=== PATIENT | female | born 1955 | race Caucasian/White ===

== ENCOUNTER 2017-01-28 06:58 | Day surgery (SDC) | payer OTHER ==
[~2017-01-28] VITALS: Ht 167.6 cm; Wt 113.4 kg
--- NOTE | ~2017-01-28 | OP ---
PATIENT NAME: SUKHDEV HYMAN MEDICAL RECORD: [id number] :53 LOCATION:[facility] ADMISSION DATE: SURGEON: ROGELIO RANDALL MD DATE OF OPERATION: 01/28/2017 PREOPERATIVE DIAGNOSIS: Nasopharyngeal mass. POSTOPERATIVE DIAGNOSIS: Nasopharyngeal mass. PROCEDURE: Excision of a nasopharyngeal mass. SURGEON: Rogelio Randall MD ANESTHESIA: General orotracheal. BLOOD LOSS: 2 cc. SPECIMENS: Mass from the nasopharynx, really the left nasopharyngeal surface of the palate. COMPLICATIONS: None. DISPOSITION: Recovery, stable. DESCRIPTION OF PROCEDURE: She was brought to the operating room and placed in supine position, sedated and intubated by anesthesia. The eyes were taped. The table was turned 90 degrees. A head drape was applied and she was positioned. Using a headlight, a Giana-Francisco mouth gag was carefully inserted and elevated on a towel on her chest. The palate was examined and palpated. It was normal. The left tonsillar pillar in the arch, there we could see the mass extending into the oropharynx just a little bit. Red rubber catheter was placed through the right side of the nose into the pharynx and grasped with a tonsil clamp to retract the soft palate and lift it up. The mass immediately became visible. It extended down to right about the inferior border of the palate, but then on exam, we could tell it did not extend to the lateral nasal wall, but it did extend with its attachment all the way up to the choana, but the base was fairly narrow about 1 cm wide. The nasopharyngeal mucosa of the palate was injected with a total of less than 1 cc of 1% with 1:100,000 epinephrine and then the mass was grasped with a pickup and using Metzenbaum scissors, the mucosa was divided around the entire lesion following it slowly posteriorly and removing a small cuff of normal mucosa around the lesion. Then, it was dissected basically full thickness of the mucosa right off the musculature of the posterior portion of the palate. This will stay completely excised. Once that was done and that was removed and sent for specimen, the area was carefully examined and was suctioned. There really was not much bleeding. Suction cautery was used to cauterize some mucosal edges just a little bit to stop some bleeding, but the wound edges and the deep surface were completely clean. There was no evidence of any residual mass. The rest of the nasopharynx and posterior choana was visualized and there were no other lesions. The hypopharynx, vallecula, and larynx were examined with a mirror as well. There were no lesions. The nasopharynx was irrigated again with Peridex that had been rinsed before the incision as well and then saline was irrigated through the nose. With the field clean and dry, the red rubber catheter was let down and removed and the Giana-Francisco mouth gag was let down and removed. She was awakened, extubated, and transported to recovery in good condition. No complications. OPERATIVE REPORT [id number] SUKHDEV HYMAN TRANSINT:[id number] Voice Confirmation ID: [id number] DOCUMENT ID: [id number] ROGELIO RANDALL MD CC: [id number] DICTATION DATE: 01/28/17 1242 NAIL PULLER: 01/28/17 1404 REG [facility] [address] [place] [address]
--- NOTE | ~2017-01-28 | HP ---
PATIENT: SUKHDEV HYMAN MEDICAL RECORD: [id number] ACCOUNT: [id number] LOCATION:[facility] : 53 ADMISSION DATE: 01/28/17 HISTORY AND PHYSICAL EXAMINATION Preoperative History and Physical HISTORY OF PRESENT ILLNESS: Sukhdev is a 61-year-old female with a foreign body sensation in her throat. She is found to have a nasopharyngeal mass. She is being admitted for excision of nasopharyngeal mass. PAST MEDICAL HISTORY: Includes hypertension, hypothyroidism and allergic rhinitis. PAST SURGICAL HISTORY: Includes hysterectomy and carpal tunnel surgery. CURRENT MEDICATIONS: Hydrochlorothiazide, lisinopril and levothyroxine. ALLERGIES: No known drug allergies. PHYSICAL EXAMINATION: GENERAL: She is healthy-appearing, normal voice. FACE: Normal, symmetric, no lesions. 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 EARS: Canals and TMs are normal. NOSE: No mass, polyps, or drainage. ORAL CAVITY AND OROPHARYNX: Papillomatous-appearing mass extending from the nasopharynx into the posterior oropharynx is visible. NECK: No mass or adenopathy. Flexible laryngoscopy reveals a mostly right-sided lesion, appears to be attached to the posterior palate, apparently filling most of the nasopharynx. CHEST: Clear. CARDIOVASCULAR: Regular rate and rhythm, no murmur. EXTREMITIES: Normal. IMPRESSION: Nasopharyngeal mass. PLAN: Excision of right nasopharyngeal mass. TRANSINT:[id number] Voice Confirmation ID: [id number] DOCUMENT ID: [id number] ROGELIO HAYES MD CC: [id number] DICTATION DATE: 01/20/17 1415 CLOTH STRETCHER: 01/20/17 1529 PRE [place] [id number] [place] [id number]
[2017-01-28 08:52] LABS: HEMATOCRIT 46.7 % (36.0-48.0); HEMOGLOBIN 14.8 g/dL (12-16); MCH 31.6 pg (26.0-34.0); MCHC 31.7 g/dL (31.0-37.0); MCV 99.8 fL (80.0-100.0); MEAN PLATELET VOLUME 10.5 fL (7.4-10.4); RBC 4.68 10x6/uL (4.00-5.40); RDW 13.4 % (11.5-14.5); WBC 6.3 10x3/uL (4.8-10.8)
[2017-01-28 09:02] LABS: CALC OSMOLALITY 285 mosm/kg (275-300); CALCIUM 8.6 mg/dL (8.5-10.1); CARBON DIOXIDE 30.8 mmol/L (21.0-32.0); CHLORIDE - SERUM 105 mmol/L (98-107); CREATININE - SERUM 0.6 mg/dL (0.6-1.3); GLUCOSE 102 mg/dL (74-106); POTASSIUM - SERUM 4.2 mmol/L (3.5-5.1); SODIUM 143 mmol/L (136-145); UREA NITROGEN 16 mg/dL (7-18); eGFR NON AFRICAN AMERICAN > 90 mL/min (90-120)
[2017-01-28] MEDS ORDERED: LISINOPRIL10 MG PO (09:10)
[2017-01-28] MEDS ORDERED: HCTZ25 MG PO (09:10)
[2017-01-28] MEDS ORDERED: LEVOTHYROXINE75 MCG PO (09:10)
[2017-01-28 09:11] VITALS: BP 188/116; Ht 167.6 cm; Wt 113.4 kg
--- NOTE | 2017-01-28 16:19 | NUR ---
1430--IV DC'D, PT UP TO DRESS AT THIS TIME. LANE RN
--- NOTE | 2017-01-28 16:20 | NUR ---
1450--DISCHARGE INSTRUCTIONS GIVEN, PT VERBALIZES UNDERSTANDING. PT OFF UNIT VIA MAXX. LANE [facility]
== END 2017-01-28 14:50 | disposition home or self-care (01) ==
LOC: D.OPS 06:58
PROVIDERS: Anesthesiology
DX: J39.2 Other diseases of pharynx (principal); I10 Essential (primary) hypertension; K21.9 Gastro-esophageal reflux disease without esophagitis; E66.9 Obesity, unspecified; Z68.41 Body mass index [BMI] 40.0-44.9, adult; Z01.812 Encounter for preprocedural laboratory examination